=== PATIENT | male | born 1995 | race Caucasian/White ===

== ENCOUNTER 2019-03-29 11:10 | Emergency (ER) | payer SELFPAY | END 2019-03-29 11:25 | disposition home or self-care (01) | LOC: SCSER 11:10 | DX: K02.9 Dental caries, unspecified (principal); K03.81 Cracked tooth; F90.9 Attention-deficit hyperactivity disorder, unspecified type; F43.10 Post-traumatic stress disorder, unspecified; F42.9 Obsessive-compulsive disorder, unspecified; F17.210 Nicotine dependence, cigarettes, uncomplicated; Z79.899 Other long term (current) drug therapy | CPT/HCPCS: 99281 ==

== ENCOUNTER 2024-06-25 16:09 | Emergency (ER) | payer SELFPAY | END 2024-06-25 18:17 | disposition home or self-care (01) | LOC: ERS 16:09 | DX: K04.7 Periapical abscess without sinus (principal); K02.9 Dental caries, unspecified; F17.290 Nicotine dependence, other tobacco product, uncomplicated | CPT/HCPCS: 99282 ==